=== PATIENT | male | born 1950 | race Caucasian/White ===

== ENCOUNTER 2024-04-27 13:28 | Emergency (ER) | payer MEDICARE, OTHER, SELFPAY ==
[2024-04-27] VITALS (9 sets, daily range): BP systolic 94–133; BP diastolic 56–82; PULSE 62–180; RESP 10–16; TEMP -17.7–36.8; O2SAT 93–97; BMI 36.7
--- NOTE | 2024-04-27 | ECG_ITS ---
Test Reason : T[place]IC[place] Blood Pressure : / mmHG Vent. Rate : 123 BPM Atrial Rate : 000 BPM P-R Int : 000 ms QRS Dur : 100 ms QT Int : 330 ms P-R-T Axes : 000 -10 036 degrees QTc Int : 472 ms Atrial fibrillation with rapid ventricular response Inferior infarct , age undetermined Abnormal ECG When compared with ECG of 26-MAR-2020 18:12, Atrial fibrillation has replaced Sinus rhythm Vent. rate has increased BY 56 BPM Non-specific change in ST segment in Lateral leads Nonspecific T wave abnormality now evident in Lateral leads Referred By: Bro Gamble Electronically Signed By:BEVERLY CRUMP
--- NOTE | ~2024-04-27 | XR_ITS ---
EXAMINATION: XR CHEST CLINICAL INFORMATION: CHF COMPARISON: Chest xray on 03/26/20 TECHNIQUE: Frontal view of the chest was obtained. FINDINGS: No significant abnormality is noted involving the heart, lungs, mediastinum, bony thorax or soft tissues. XR/XR chest 1V IMPRESSION: Unremarkable examination. Electronically signed by: Zarina Edmonds MD 04/27/2024 03:23 PM EDT RP
--- NOTE | 2024-04-27 13:52 | ED_ITS ---
HPI - Dizziness General Chief Complaint: Dizziness Stated Complaint: DIZZY,RAPID AFIB PER EMS Time Seen by Provider: 04/27/24 13:31 Source: patient and family Mode of arrival: EMS Limitations: no limitations History of Present Illness ED Provider: Dr. Bro Gamble HPI Narrative: 73-year-old male with a history of hyperlipidemia, asthma, recent diagnosis of atrial fibrillation who presents emergency department for evaluation of lightheadedness and palpitations while taking a shower. The patient states that he was in a hot shower when he felt his heart was racing. The patient felt lightheaded and dizzy as if he was going to pass out. He states that recently he was diagnosed with atrial fibrillation and initially started on metoprolol. He was feeling short of breath on metoprolol in his doctor [place] that this beta cait was exacerbating his asthma therefore this medication was discontinued and he was started on started him on diltiazem 120 mg daily. Patient states he started this 2 days ago. When he got out of the shower and felt his heart was racing, he took metoprolol 25 mg x 2. he called for his and his then called 911. Paramedics state that the patient's heart rate was 150-180 beats per minute. They gave him a 500 cc bolus of normal saline and his heart rate came down to the 120-150 range. Patient states that he has had brief episodes of near-syncope over the last 2 days. He states he has not had any associated palpitations with these near syncopal episodes. Denied fever, chills, cough, chest pain, shortness of breath. He states that he always has some baseline dyspnea on exertion this is unchanged. He denied nausea vomiting or diarrhea. Patient is scheduled for cardioversion next week by his paper cone grader. Related Data Allergies Allergy/AdvReac Type Severity Reaction Status Date / Time No Known Allergies Allergy Unverified 04/27/24 13:36 [No Known Allergies*] Review of Systems 2 Review of Systems: Yes all other systems are reviewed and are negative [facility] Past Medical History [facility] Narrative: social history: He denies tobacco use. He denies alcohol and drug use. Social History Social History Smoked in Last 30 Days: No Use of substances other than those prescribed or required for medical reasons: No Advance Directives: No Advance Directives Information Provided: No Do you have a plan to hurt others: No Plan Physical Exam 2 Vital Signs: Vital Signs: Last Vital Signs Temp 0 F L 04/27/24 17:22 Pulse 90 04/27/24 17:22 Resp 16 04/27/24 17:22 BP 115/67 04/27/24 17:22 Pulse Ox 94 04/27/24 17:22 O2 Del Method Room Air 04/27/24 17:22 BMI result Body Mass Index 36.7 Exam: General: Awake, alert in no distress Head: Normocephalic, atraumatic EENT: PERRL, Lids normal, sclera normal, conjunctiva normal, nose normal , ears normal, throat without erythema or exudates Neck: Supple, no adenopathy Lung: breath sounds symmetric, no wheezing, rales or rhonchi Chest: symmetric movement, nontender Heart: Rapid irregularly irregular heart rate, normal S1, S2 no murmurs or rubs Abdomen: soft, non-tender, nondistended, normal bowel sounds Back: no vertebral tenderness, no CVAT Extremities: no deformities, moves all extremities symmetrically Neuro: Awake, alert, oriented, normal speech, cranial nerves intact, moves all extremities symmetrically Psych: Pleasant, cooperative Medications Administered Discontinued Medications Generic Name Dose Route Start Last Admin Trade Name Freq PRN Reason Stop Dose Admin Diltiazem HCl 20 mg 04/27/24 13:53 04/27/24 14:09 Diltiazem Hcl 50 Mg/10 Ml Vial IVPUSH 04/27/24 13:54 10 mg STAT STA Administration Medical Decision Making Medical Decision Making [facility] Narrative: 73-year-old male with a history of hyperlipidemia, asthma, atrial fibrillation on Xarelto who presents emergency department for evaluation of lightheadedness and palpitations while taking a shower. patient was recently diagnosed with atrial fibrillation initially was placed on metoprolol but this was discontinued for possible exacerbation of his asthma and he was started on diltiazem 120 mg daily 2 days prior. Patient states that he has had brief episodes of near- syncope since starting the diltiazem but has not had associated palpitations. Paramedics report that the patient's initial heart rate was 150-180 beats per minute. This improved after a 500 cc normal saline bolus he was heart rate decreased to the 120-150 range. Patient denied any associated chest pain or systemic symptoms. At the time of my evaluation the patient did have a rapid irregular heart rate 120-150 beats per minute. Exam was otherwise unremarkable. Differential diagnosis: Includes but is not limited to Myocardial infarction, myocardial ischemia, atrial fibrillation with rapid ventricular response, arrhythmia, anemia, electrolyte abnormalities Patient was initially treated with the following: diltiazem 10 mg IV Course: my interpretation of the patient's laboratory evaluation is as follows: CBC was normal. CMP was normal. High sensitive troponin I was below detectable limits. PT/INR were elevated 2.1 in 25.8, PTT is elevated 43.9-this is secondary to his Xarelto. The patient got significant improvement of his rate with IV diltiazem. Patient remained in atrial fibrillation. The patient's laboratory evaluation revealed no evidence for myocardial him injury. Patient was discharged home and advised to continue taking his diltiazem as prescribed by his paper cone grader. He was given printed and verbal instructions and discharged home. Admission/Observation Consideration of admission/observation: Escalation of care including admission/observation considered Lab Data MDM Lab Attestation statement: I reviewed the patient's lab results. 04/27/24 13:58 04/27/24 13:58 Labs: Lab Results 04/27/24 04/27/24 Range/Units 13:57 13:58 WBC 7.2 (4.8-10.8) X10*3/uL RBC 4.84 (4.60-5.80) X10*6/uL Hgb 14.6 (14.0-18.0) g/dl Hct 44.3 (42.0-52.0) % MCV 91.5 (80.0-98.0) fL MCH 30.2 (27.0-33.0) pg MCHC 33.0 (31.0-36.0) g/dl RDW 13.2 (11.0-16.0) % Plt Count 207 (160-400) X10*3/uL MPV 8.9 L (9.4-12.4) fL Immature Gran % (Auto) 0.6 H (0.0-0.4) % Neut % (Auto) 64.1 (45-73) % Lymph % (Auto) 25.4 (20-40) % [place] % (Auto) 7.8 (2-11) % Eos % (Auto) 1.8 (0-4) % Baso % (Auto) 0.3 (0-2) % Lymph # (Auto) 1.8 (1.2-4.9) X10*3/uL [place] # (Auto) 0.6 (0.1-1.2) X10*3/uL Eos # (Auto) 0.1 (0.0-0.4) X10*3/uL Baso # (Auto) 0.0 (0.0-0.2) X10*3/uL Abs Immat Gran (auto) 0.04 H (0.00-0.03) X10*3/uL Absolute Neuts (auto) 4.6 (2.0-8.3) x10*3/uL Absolute Nucleated RBC 0.000 (0.0-0.012) X10*3/uL Nucleated RBC % (auto) 0.0 (0.0-0.2) /100WBC PT 25.8 H (11.1-13.3) SEC INR 2.1 H (0.9-1.1) APTT 43.9 H (26.0-36.8) SEC Sodium 143 (135-145) mmol/L Potassium 4.4 (3.3-5.1) mmol/L Chloride 109 H (96-108) mmol/L Carbon Dioxide 24 (22-29) mmol/L Anion Gap 14 (12-20) BUN 13 (9-16) mg/dL Creatinine 0.88 (0.5-1.4) mg/dL Estim Creat Clear Calc 113.2 Estimated GFR > 60 Random Glucose 102 (60-115) mg/dL Calcium 8.9 (8.4-10.2) mg/dL Total Bilirubin 0.5 (0.0-1.0) mg/dL AST 20 (5-37) U/L ALT 23 (0-40) U/L Alkaline Phosphatase 70 (39-117) U/L Troponin I High Sens < 2.7 (<3.5-35.0) ng/L B-Natriuretic Peptide 291 H (<100) pg/mL Total Protein 6.7 (6.5-8.0) g/dL Albumin 4.0 (3.5-5.0) g/dL Lipase 25 (8-78) U/L Hold Red Top See Note Independent Interpretation I performed an independent interpretation of an: EKG Interpretation: My interpretation the patient's 12 EKG done at 13:43 hours is as follows: Atrial fibrillation with a rapid ventricular response of 123 beats per minute, prolonged QRS 100 milliseconds, normal QTC of 472 milliseconds, Q-waves in 3 and AVF, no significant ST segment elevation or depression no significant T- wave abnormalities. My independent interpretation of the patient's one-view chest x-ray is as follows: No acute infiltrates Radiology Impression Discussion of test interpretation with radiology: I have reviewed the radiologist's reading. Radiologist Impression: XR chest 1V IMPRESSION: Unremarkable examination. Electronically signed by: Zarina Edmonds MD 04/27/2024 03:23 PM EDT RP Dictated By: Zarina Edmonds MD Independent Historian Clinical information obtained from an independent historian. History obtained from or confirmed by: Spouse Chronic Conditions Patient?s care impacted by: Other ( hyperlipidemia) Critical Care Time Critical Care Time Critical Care Time: Yes Total Critical Care Time: 40 Attestation: Critical Care: The patient was critically ill with a high probability of imminent or life threatening deterioration. I spent greater than 30 minutes of discontinuous time evaluating the patient,delivering critical care at the bedside, discussing and evaluating pertinent data with consultants. Critical care time does not include time spent performing separately billable procedures or teaching. Total time spent performing critical care was 40 minutes. Discharge Plan Discharge Clinical Impression: Atrial fibrillation with rapid ventricular response Patient Disposition: Home, Self-Care Instructions: A-fib (Atrial Fibrillation) (ED) Additional Instructions: At this time, I believe that your lightheadedness was caused by your atrial fibrillation and your very rapid heart rate. The paramedics state that your heart rate was going between 150 beats per minute to 180 beats per minute. They gave you IV fluids and this decrease your heart rate to 120-150 beats per minute. Here in the emergency department we treated you with diltiazem 10 mg IV and this improved your heart rate. You had a complete blood count, comprehensive metabolic panel and high sensitive troponin I. All of these tests were unremarkable and normal. I want you to continue taking your diltiazem as prescribed by your provider. Do not take metoprolol since I believe this medication made you short of breath previously. When you see your paper cone grader you should ask them about metoprolol and if they do not want you to take this medication you should throw the medication away so you do not accidentally take it in the future. Continue taking your Xarelto and your other medications as prescribed. Follow-up with your doctor in 2 days. Please return to the emergency department if your symptoms get worse or if you develop any symptoms that are concerning to you. Interventions: ED Discharge Assessment Last Done: 04/27/24 17:22 Discharge Date/Time: 04/27/24 17:24 Print Language: Pakistani
[2024-04-27 14:03] LABS: MANUAL DIFF FLAG NO
[2024-04-27 14:05] LABS: Basophils Percent Auto 0.3 % (0-2); Eosinophils Absolute Auto 0.1 X10*3/uL (0.0-0.4); Eosinophils Percent Auto 1.8 % (0-4); Hematocrit 44.3 % (42.0-52.0); Hemoglobin 14.6 g/dl (14.0-18.0); Imm Gran Abs Auto 0.04 X10*3/uL (0.00-0.03); Imm Gran Pct Auto 0.6 % (0.0-0.4); Lymphocytes Absolute Auto 1.8 X10*3/uL (1.2-4.9); Lymphocytes Percent Auto 25.4 % (20-40); Mean Corpuscular Hemoglobin 30.2 pg (27.0-33.0); Mean Corpuscular Volume 91.5 fL (80.0-98.0); Mean Platelet Volume 8.9 fL (9.4-12.4); Monocytes Absolute Auto 0.6 X10*3/uL (0.1-1.2); Monocytes Percent Auto 7.8 % (2-11); Neutrophils Absolute Auto 4.6 x10*3/uL (2.0-8.3); Neutrophils Percent Auto 64.1 % (45-73); Platelet Count 207 X10*3/uL (160-400); Red Blood Count 4.84 X10*6/uL (4.60-5.80); Red Cell Distribution Width 13.2 % (11.0-16.0); White Blood Count 7.2 X10*3/uL (4.8-10.8)
[2024-04-27] MEDS: dilTIAZem HCL 50 MG/10 ML VIAL 20 MG IVPUSH (14:09)
[2024-04-27 14:12] LABS: INTERNATIONAL NORM RATIO 2.1 (0.9-1.1); Prothrombin Time 25.8 SEC (11.1-13.3)
[2024-04-27 14:14] LABS: Partial Thromboplastin Time 43.9 SEC (26.0-36.8)
--- NOTE | 2024-04-27 14:22 | PC.NURSE ---
Pt comes to ED today via EMS from home with c/o dizziness and weakness while in the shower. Per EMS, while in route Pt was noted to have HR ranging from 120-180. Pt with Hx AFib and a recent change in BP medications by PCP. Upon arrival Pt noted to have HR ranging from 130-150, BP stable, afebrile, and A&Ox3. Skin is warm and dry. Pt denies pain at this time. Breaths are slow, even and unlabored. Pt reports some SOB but states this is a baseline. Tremor noted however Pt reports this is a baseline. Provider at bedside and ordered Cardizem IV push with good result. Pt tolerated well and HR now ranging from 90-110. Pt on continuous cardiac monitoring, blood labs completed and awaiting results.
[2024-04-27 14:27] LABS: Alanine Aminotransferase 23 U/L (0-40); Alkaline Phosphatase 70 U/L (39-117); Anion Gap 14 (12-20); Aspartate Amino Transferase 20 U/L (5-37); Bilirubin Total 0.5 mg/dL (0.0-1.0); Blood Urea Nitrogen 13 mg/dL (9-16); Calcium 8.9 mg/dL (8.4-10.2); Carbon Dioxide 24 mmol/L (22-29); Chloride 109 mmol/L (96-108); Creatinine Clr Calc Pharmacy 113.2; Estimated Glomerular Filt Rate > 60; Glucose Random 102 mg/dL (60-115); Lipase 25 U/L (8-78); Potassium 4.4 mmol/L (3.3-5.1); Sodium 143 mmol/L (135-145); Total Protein 6.7 g/dL (6.5-8.0)
[2024-04-27 14:30] LABS: B Type Natriuretic Peptide 291 pg/mL (<100)
[2024-04-27 14:37] LABS: Troponin-I High Sensitivity < 2.7 ng/L (<3.5-35.0)
== END 2024-04-27 17:24 | disposition home or self-care (01) ==
PROVIDERS: Emergency Provider Emergency Medicine Emergency Medical Services
DX: I48.20 Chronic atrial fibrillation, unspecified (principal); R42 Dizziness and giddiness; R00.2 Palpitations; R06.02 Shortness of breath; Z79.01 Long term (current) use of anticoagulants; Z79.899 Other long term (current) drug therapy
CPT/HCPCS: 36415; 71045; 80053; 83690; 83880; 84484; 85025; 85610; 85730; 93005; 96374; 99285

== ENCOUNTER 2024-08-18 11:09 | Observation (INO) | payer MEDICARE, OTHER, SELFPAY ==
[2024-08-18] VITALS (9 sets, daily range): BP systolic 96–140; BP diastolic 63–82; PULSE 85–122; RESP 14–20; TEMP 36.4–36.9; O2SAT 89–96; BMI 34.8
--- NOTE | ~2024-08-18 | XR_ITS ---
EXAMINATION: XR CHEST CLINICAL INFORMATION: dizziness COMPARISON: None available. TECHNIQUE: Frontal view of the chest was obtained. FINDINGS: The lungs are well-expanded and clear acute pneumonic process. There is platelike atelectasis in the lingula. Heart size and pulmonary vascularity is normal. No gross bony abnormality seen.. XR/XR chest 1V IMPRESSION: Unremarkable chest examination. Electronically signed by: Rigo Dela Cruz MD 08/18/2024 12:30 PM EST
--- NOTE | 2024-08-18 11:15 | ED_ITS ---
HPI - General Adult General Chief complaint: Dizziness Stated complaint: DIZZY,SOB RAPID AFIB PER EMS Time Seen by Provider: 08/18/24 11:15 Source: patient, family (patient's ) and EMS Mode of arrival: EMS Limitations: no limitations History of Present Illness ED Provider: Kennedi Burton PA-C HPI narrative: Patient is a 73 year old assigned male at with a history of atrial fib on 120 mg of ER Diltiazem and Xarelto with an ablation scheduled for September, presenting to the emergency department today with lightheadedness and shortness of breath. Patient states that he woke up today feeling lightheaded and some what short of breath. Patient denies any dizziness, abdominal pain, nausea, vomiting, fever, chills, blurry vision, double vision, loss of vision, chest pain, back pain, night sweats, pain with urination, increased urinary frequency, increased urinary urgency, blood in his urine or stool, syncope or a near syncopal episode, recent trauma or falls, bowel incontinence, bladder incontinence, or any other complaints at this time. Relieving factors: none Exacerbating factors: none Associated symptoms: shortness of breath Treatments prior to arrival: none Related Data Home Medications ?Medication ?Instructions ?Recorded ?Confirmed atorvastatin 80 mg tablet 80 mg PO DAILY 08/18/24 diltiazem HCl 120 mg 120 mg PO DAILY 08/18/24 capsule,extended release 24 hr docusate sodium 100 mg capsule 100 mg PO DAILY 08/18/24 gabapentin 300 mg capsule 300 mg PO TID 08/18/24 gabapentin 300 mg capsule 900 mg PO BEDTIME 08/18/24 omeprazole 20 mg capsule,delayed 20 mg PO DAILY@0630 08/18/24 release oxycodone 10 mg tablet 10 mg PO 08/18/24 rivaroxaban 20 mg tablet (Xarelto) 20 mg PO DAILY@1700 08/18/24 tamsulosin 0.4 mg capsule 0.4 mg PO BEDTIME 08/18/24 Allergies Allergy/AdvReac Type Severity Reaction Status Date / Time No Known Allergies Allergy Verified 08/18/24 11:18 [No Known Allergies*] Review of Systems 2 Constitutional: Constitutional: Reports no additional constitutional complaints, Denies chills, Denies fever(s) and Denies night sweats Eyes: Eyes: Reports no additional eye complaints, Denies blurry vision, Denies change in vision, Denies diplopia, Denies eye discharge, Denies loss of vision and Denies eye pain ENT: Denies dizziness Cardiovascular: Cardiovascular: Reports no additional cardiovascular complaints, Denies chest pain, Denies lightheadedness, Denies Loss of Consciousness and Reports dyspnea Respiratory: Respiratory: Reports dyspnea Gastrointestinal: Gastrointestinal: Reports no additional gastrointestinal complaints, Denies abdominal pain, Denies melena, Denies hematochezia, Denies change in bowel habits and Denies change in stool character Genitourinary: Genitourinary: Reports no additional male genitourinary complaints, Denies hematuria, Denies oliguria, Denies difficulty urinating, Denies dysuria, Denies urinary frequency, Denies urinary hesitancy, Denies urinary incontinence and Denies urinary urgency Musculoskeletal: Musculoskeletal: Reports no additional musculoskeletal complaints, Denies numbness and Denies tingling Neurologic: Denies dizziness, Denies loss of vision, Denies numbness and Denies tingling Comments: lightheadedness Psychiatric: Psychiatric: Reports no additional psychiatric complaints Endocrine: Endocrine: Reports no additional endocrine complaints Hematologic/Lymphatic: Hematologic/Lymphatic: Reports no additional hematologic/lymphatic complaints Allergic/Immunologic: Allergic/Immunologic: Reports no additional allergic/immunologic complaints PMFSH Past Medical History Attestation statement: The following information was validated with the patient. (all information validated with the patient's ) Source: old records reviewed, obtained from family (patient's provided additional history and confirmed the history provided by the patient) and nursing notes reviewed Social History Social History Smoked in Last 30 Days: No Use of substances other than those prescribed or required for medical reasons: No Advance Directives: No Advance Directives Information Provided: Yes Do you have a plan to hurt others: No Plan Physical Exam ED Vital Signs: Vital Signs - 24 hr 08/18/24 11:16 08/18/24 12:02 08/18/24 12:03 Temperature 98.5 F Pulse Rate 122 H 101 H 101 H Respiratory Rate 18 14 Blood Pressure 121/82 103/69 103/69 Pulse Oximetry 96 89 L Oxygen Delivery Method Nasal Cannula Room Air Oxygen Flow Rate 08/18/24 12:42 08/18/24 13:10 12/30/24 14:43 Temperature Pulse Rate 93 98 87 Respiratory Rate 20 14 Blood Pressure 96/69 102/71 113/79 Pulse Oximetry 96 95 Oxygen Delivery Method Nasal Cannula Nasal Cannula Oxygen Flow Rate 2 2 08/18/24 14:44 08/18/24 14:45 Temperature Pulse Rate 96 89 Respiratory Rate Blood Pressure 114/70 120/63 Pulse Oximetry Oxygen Delivery Method Oxygen Flow Rate BMI result Body Mass Index 34.8 Const General: cooperative, no acute distress, alert and awake Nutritional Appearance: well nourished Orientation/consciousness: patient oriented x3 Limitations: no limitations HENMT Head: Yes normal to inspection and Yes atraumatic Ears: hearing grossly normal bilaterally and external ears normal General nose exam: Normal external nose present, no nasal discharge noted and no epistaxis Face and sinus: Yes normal facial exam, No abrasion and No laceration Mouth: Normal oral and palatal mucosa present, no drooling and no muffled voice Eyes General: appearance normal, both eyes and all related structures Periorbital: periorbital findings normal Eyelids: Yes eyelids normal Conjunctivae: conjunctivae normal Pupils: Equal, round and reactive pupils present EOM: EOMs intact bilaterally Neck Neck: Yes normal visual inspection, Yes full ROM and Yes no lymphadenopathy Chest Chest palpation & inspection: normal inspection of the chest Resp Effort & Inspection: normal respiratory effort and able to speak in complete sentences Cardio Rate: tachycardic Rhythm: abnormal rhythm irregularly irregular GI Inspection: Yes normal to inspection Neuro General: patient oriented x3 and moves all extremities Cranial nerves: Yes Equal, round and reactive pupils present Cognition (Neuro): normal cognition Extrem General: Yes normal to inspection, Yes full ROM and Yes capillary refill normal Psych Appearance: grossly normal Mental Status: mental status grossly normal Affect: normal affect Attitude: cooperative Thought process: Normal thought process present Thought content: Normal thought content present Insight: Good insight present (Psych) Medications Administered Discontinued Medications Generic Name Dose Route Start Last Admin Trade Name Freq PRN Reason Stop Dose Admin Diltiazem HCl 5 mg 08/18/24 11:50 08/18/24 12:03 Diltiazem Hcl 50 Mg/10 Ml Vial IVPUSH 08/18/24 11:51 5 mg STAT STA Administration Sodium Chloride 1,000 mls @ 999 mls/hr 08/18/24 12:45 08/18/24 14:06 Ns IV 08/18/24 13:45 Infused .Q1H1M RHONDA Infusion Medical Decision Making Medical Decision Making [facility] Narrative: Patient is a 73 year old assigned male at with a history of atrial fib on 120 mg of ER Diltiazem and Xarelto with an ablation scheduled for September, presenting to the emergency department today with lightheadedness and shortness of breath. Patient's physical exam showed an individual in atrial fibrillation with RVR. Patient's blood work was unremarkable. Patient's urine showed no acute process. Patient's initial EKG showed atrial fibrillation with RVR. Patient's chest x-ray showed no acute process. Patient was given 5mg of IV diltiazem while his heart rate was in the mid 120s to low 130s, which appropriately slowed his rate however, his systolic blood pressure dropped some. At that time the patient was given IV fluids. I called and spoke to the patient's educational technician, Dr. Jones, who recommended continuing to hydrate the patient and performing orthostatic vital signs. After patient finished his fluids, he was stood up for orthostatic vital signs and had a near syncopal episode and a rhythm strip was captured showing multiple 1-2 second pauses with PVCs and then the patient going back into atrial fib. Repeat EKG at that time showed atrial fib at a normal rate. I reached back out to Dr. Jones who recommended medical admission here at [facility] with our educational technician team consulting. I consulted with Dr. Hayes who agreed with medical admission. I spoke to the hospitalist team who agreed to admission. I explained my physical exam findings as well as all test results to the patient and the patient's . I answered all questions asked by the patient and the patient's . Patient and the patient's verbalized agreement and understanding with this treatment plan and admission. Differential Diagnosis Differential Diagnoses: The differential diagnosis associated with the presentation includes Sick sinus syndrome Atrial fibrillation with rapid ventricular response Near syncope Orthostatic hypotension Admission/Observation Consideration of admission/observation: Escalation of care including admission/observation considered Patient admitted as noted in the MDM Rationale portion of this note. Consult Healthcare Provider Management of the patient was discussed with: Hospitalist (agreed to admission as noted in the MDM Rationale portion of this note.) and Hand Rounder (spoke to both [facility] cardiology and Dr. Jones as noted in the MDM Rationale portion of this note.) Lab Data [facility] Lab Attestation statement: I reviewed the patient's lab results. My interpretation of these results are in the MDM Rationale portion of this note. 08/18/24 11:34 08/18/24 11:34 Labs: Lab Results 08/18/24 08/18/24 08/18/24 Range/Units 11:34 12:42 14:34 WBC 6.2 (4.8-10.8) X10*3/uL RBC 4.22 L (4.60-5.80) X10*6/uL Hgb 12.9 L (14.0-18.0) g/dl Hct 39.8 L (42.0-52.0) % MCV 94.3 (80.0-98.0) fL MCH 30.6 (27.0-33.0) pg MCHC 32.4 (31.0-36.0) g/dl RDW 12.9 (11.0-16.0) % Plt Count 179 (160-400) X10*3/uL MPV 8.4 L (9.4-12.4) fL Immature Gran % (Auto) 0.5 H (0.0-0.4) % Neut % (Auto) 66.5 (45-73) % Lymph % (Auto) 21.6 (20-40) % [place] % (Auto) 8.1 (2-11) % Eos % (Auto) 3.1 (0-4) % Baso % (Auto) 0.2 (0-2) % Lymph # (Auto) 1.3 (1.2-4.9) X10*3/uL [place] # (Auto) 0.5 (0.1-1.2) X10*3/uL Eos # (Auto) 0.2 (0.0-0.4) X10*3/uL Baso # (Auto) 0.0 (0.0-0.2) X10*3/uL Abs Immat Gran (auto) 0.03 (0.00-0.03) X10*3/uL Absolute Neuts (auto) 4.1 (2.0-8.3) x10*3/uL Absolute Nucleated RBC 0.000 (0.0-0.012) X10*3/uL Nucleated RBC % (auto) 0.0 (0.0-0.2) /100WBC PT 18.1 H (10.9-12.4) SEC INR 1.6 H (0.9-1.1) APTT 39.4 H (26.0-36.8) SEC VBG pH 7.53 H (7.32-7.43) VBG pCO2 29 mmHg VBG pO2 235 mmHg VBG HCO3 25 (22-26) mmol/L VBG O2 Saturation 100.0 % VBG Base Excess 3.6 mmol/L Sodium 142 (135-145) mmol/L Potassium 4.6 (3.3-5.1) mmol/L Chloride 108 (96-108) mmol/L Carbon Dioxide 30 H (22-29) mmol/L Anion Gap 9 L (12-20) BUN 16 (9-16) mg/dL Creatinine 0.89 (0.5-1.4) mg/dL Estim Creat Clear Calc 108.9 Estimated GFR > 60 Random Glucose 112 (60-115) mg/dL Calcium 8.4 (8.4-10.2) mg/dL Magnesium 2.2 (1.6-2.6) mg/dL Total Bilirubin 0.4 (0.0-1.0) mg/dL AST 59 H (5-37) U/L ALT 90 H (0-40) U/L Alkaline Phosphatase 65 (39-117) U/L Troponin I High Sens < 2.7 (<3.5-35.0) ng/L Total Protein 6.2 L (6.5-8.0) g/dL Albumin 3.7 (3.5-5.0) g/dL Urine Color Dark Yellow Urine Appearance Clear Urine pH 5.5 (5.0-9.0) Ur Specific [place] 1.020 (1.005-1.025) Urine Protein Negative (Neg-Trace) mg/dL Urine Glucose (UA) Negative (Negative) mg/dL Urine Ketones Negative (Negative) mg/dL Urine Blood Negative (Negative) Urine Nitrite Negative (Negative) Ur Leukocyte Esterase Negative (Negative) Influenza Type A (PCR) NEGATIVE (Negative) Influenza Type B (PCR) NEGATIVE (Negative) RSV RNA Qual (PCR) NEGATIVE (Negative) SARS-CoV-2 RNA (RT-PCR) NEGATIVE (Negative) Independent Interpretation I performed an independent interpretation of an: EKG and Plain X-Ray Interpretation: My interpretation is in agreement with the radiologist's impression of this imaging study. L EXAMINATION: XR CHEST CLINICAL INFORMATION: dizziness COMPARISON: None available. TECHNIQUE: Frontal view of the chest was obtained. FINDINGS: The lungs are well-expanded and clear acute pneumonic process. There is platelike atelectasis in the lingula. Heart size and pulmonary vascularity is normal. No gross bony abnormality seen.. XR/XR chest 1V IMPRESSION: Unremarkable chest examination. Electronically signed by: Rigo Dela Cruz MD 08/18/2024 12:30 PM EST Dictated By: Rigo Dela Cruz MD Signed By: Electronically signed by Rigo Dela Cruz MD 08/18/24 1230 Vent. Rate: 102 BPM Atrial Rate: 000 BPM P-R Int: 000 ms QRS Dur: 100 ms QT Int: 300 ms P-R-T Axes: 000 000 006 degrees QTc Int: 391 ms Atrial fibrillation with rapid ventricular response Abnormal ECG When compared with ECG of 27-APR-2024 13:43, No significant change was found Referred By: Kennedi Butron Electronically Signed By:BIGG HAYES MD Dictated By: Bigg Hayes MD Signed By: Electronically signed by Bigg Hayes MD 08/18/24 1547 Vent. Rate: 085 BPM Atrial Rate: 000 BPM P-R Int: 000 ms QRS Dur: 100 ms QT Int: 392 ms P-R-T Axes: 000 -02 -07 degrees QTc Int: 466 ms Atrial fibrillation Cannot rule out Anterior infarct , age undetermined Abnormal ECG When compared with ECG of 18-AUG-2024 11:21, QT has lengthened DD/ 1450 Independent Historian Clinical information obtained from an independent historian. History obtained from or confirmed by: Spouse (Patient's provided additional history and confirmed the history provided by the patient.) and EMS (EMS provided additional history and confirmed the history provided by the patient.) Critical Care Time Critical Care Time Critical Care Time: Yes Total Critical Care Time: 54 Attestation: I spent 54 minutes of Critical Care Time with this patient. This does not include time spent on separately reported billable procedures. Discharge Plan Discharge Clinical Impression: Atrial fibrillation with RVR, Near syncope Patient Disposition: Admitted As Inpatient Print Language: Hungarian
--- NOTE | 2024-08-18 11:19 | ECG_ITS ---
Test Reason : A FIB Blood Pressure : / mmHG Vent. Rate : 102 BPM Atrial Rate : 000 BPM P-R Int : 000 ms QRS Dur : 100 ms QT Int : 300 ms P-R-T Axes : 000 000 006 degrees QTc Int : 391 ms Atrial fibrillation with rapid ventricular response Abnormal ECG When compared with ECG of 27-APR-2024 13:43, No significant change was found Referred By: Kennedi Burton Electronically Signed By:ASHWIN HAYES MD
[2024-08-18 11:39] LABS: MANUAL DIFF FLAG NO
[2024-08-18 11:41] LABS: Basophils Percent Auto 0.2 % (0-2); Eosinophils Absolute Auto 0.2 X10*3/uL (0.0-0.4); Eosinophils Percent Auto 3.1 % (0-4); Hematocrit 39.8 % (42.0-52.0); Hemoglobin 12.9 g/dl (14.0-18.0); Imm Gran Abs Auto 0.03 X10*3/uL (0.00-0.03); Imm Gran Pct Auto 0.5 % (0.0-0.4); Lymphocytes Absolute Auto 1.3 X10*3/uL (1.2-4.9); Lymphocytes Percent Auto 21.6 % (20-40); Mean Corpuscular HGB Conc 32.4 g/dl (31.0-36.0); Mean Corpuscular Hemoglobin 30.6 pg (27.0-33.0); Mean Corpuscular Volume 94.3 fL (80.0-98.0); Mean Platelet Volume 8.4 fL (9.4-12.4); Monocytes Absolute Auto 0.5 X10*3/uL (0.1-1.2); Monocytes Percent Auto 8.1 % (2-11); Neutrophils Absolute Auto 4.1 x10*3/uL (2.0-8.3); Neutrophils Percent Auto 66.5 % (45-73); Platelet Count 179 X10*3/uL (160-400); Red Blood Count 4.22 X10*6/uL (4.60-5.80); Red Cell Distribution Width 12.9 % (11.0-16.0); White Blood Count 6.2 X10*3/uL (4.8-10.8)
[2024-08-18 11:48] LABS: INTERNATIONAL NORM RATIO 1.6 (0.9-1.1); Prothrombin Time 18.1 SEC (10.9-12.4)
[2024-08-18 11:50] LABS: Partial Thromboplastin Time 39.4 SEC (26.0-36.8)
[2024-08-18 11:56] LABS: Alanine Aminotransferase 90 U/L (0-40); Albumin Level 3.7 g/dL (3.5-5.0); Alkaline Phosphatase 65 U/L (39-117); Anion Gap 9 (12-20); Aspartate Amino Transferase 59 U/L (5-37); Bilirubin Total 0.4 mg/dL (0.0-1.0); Blood Urea Nitrogen 16 mg/dL (9-16); Calcium 8.4 mg/dL (8.4-10.2); Carbon Dioxide 30 mmol/L (22-29); Chloride 108 mmol/L (96-108); Creatinine Clr Calc Pharmacy 108.9; Estimated Glomerular Filt Rate > 60; Glucose Random 112 mg/dL (60-115); Magnesium 2.2 mg/dL (1.6-2.6); Potassium 4.6 mmol/L (3.3-5.1); Sodium 142 mmol/L (135-145); Total Protein 6.2 g/dL (6.5-8.0)
[2024-08-18] MEDS: dilTIAZem HCL 50 MG/10 ML VIAL IVPUSH (12:03)
[2024-08-18 12:04] LABS: Troponin-I High Sensitivity < 2.7 ng/L (<3.5-35.0)
[2024-08-18 12:33] LABS: Influenza A PCR NEGATIVE (Negative); Influenza B PCR NEGATIVE (Negative); Resp Syncy Virus RNA Qual PCR NEGATIVE (Negative); SARS COV2 PCR INHOUSE NEGATIVE (Negative)
[2024-08-18 12:46] LABS: Venous Blood Gas Refer to POC result
[2024-08-18 12:47] LABS: VBG Base Excess 3.6 mmol/L; VBG HCO3 25 mmol/L (22-26); VBG pCO2 29 mmHg; VBG pH 7.53 (7.32-7.43); VBG pO2 235 mmHg
[2024-08-18] MEDS: 0.9 % Sodium Chloride 1,000 ML 999 ML IV ×2 (13:09→17:09)
[2024-08-18 14:42] LABS: Appearance Urine Clear; Color Urine Dark Yellow; Glucose Urine UA Negative (Negative); Leukocyte Esterase Urine Negative (Negative); Nitrite Urine Negative (Negative); PH 5.5 (5.0-9.0); Urine Blood Negative (Negative); Urine Ketones Negative (Negative); Urine Protein Negative (Neg-Trace)
--- NOTE | 2024-08-18 14:44 | ECG_ITS ---
Test Reason : REPEAT EKG/DIZZINESS Blood Pressure : / mmHG Vent. Rate : 085 BPM Atrial Rate : 000 BPM P-R Int : 000 ms QRS Dur : 100 ms QT Int : 392 ms P-R-T Axes : 000 -02 -07 degrees QTc Int : 466 ms Atrial fibrillation Cannot rule out Anterior infarct , age undetermined Abnormal ECG When compared with ECG of 18-AUG-2024 11:21, QT has lengthened Referred By: Kennedi Burton Electronically Signed By:ASHWIN HAYES MD
--- NOTE | 2024-08-18 16:22 | PM.IMHP ---
History of Present Illness Date of Service: 08/18/24 Chief Complaint: Atrial fibrillation with rapid ventricular response 73 year old male with a history of atrial fib on 120 mg of ER Diltiazem and Xarelto with an ablation scheduled for September, presenting to the emergency department today with lightheadedness and shortness of breath. Patient states that he woke up today feeling lightheaded and some what short of breath. Presented to ER with ventricular response rate in the 120s to 130s; given 2 L of normal saline and 5 mg of IV Cardizem with markedly improved rate control. He will be admitted overnight monitored and cardiology consult in a.m. Review of Systems Review of Systems: Denies chest pain Admits shortness of breath this a.m. none currently Denies nausea vomiting diarrhea Denies fever chills PMFSH Social History Smoked in Last 30 Days: No Use of substances other than those prescribed or required for medical reasons: No Advance Directives: No Advance Directives Information Provided: Yes Do you have a plan to hurt others: No Plan Meds Allergies Allergy/AdvReac Type Severity Reaction Status Date / Time No Known Allergies Allergy Verified 08/18/24 11:18 [No Known Allergies*] Active Medications: Current Medications Acetaminophen (Acetaminophen 325 Mg Tablet) 650 mg PO Q6H PRN PRN Reason: Pain, Mild 1-3,fever,headache Calcium Carbonate (Calcium Carbonate 750 Mg Tab.Chew) 750 mg PO Q4H PRN PRN Reason: Heartburn Magnesium Hydroxide (Milk Of Magnesia 30 Ml Oral.Susp) 30 ml PO DAILY PRN PRN Reason: Constipation Melatonin (Melatonin 3 Mg Tablet) 6 mg PO BEDTIME PRN PRN Reason: Insomnia Ondansetron HCl (Ondansetron Hcl 4 Mg/2 Ml Vial) 4 mg IVPUSH Q8H PRN PRN Reason: Nausea and Vomiting Sodium Chloride (0.9 % Sodium Chloride Flush 3 Ml Syringe) 3 ml IVFLUSH [facility] Medications ?Medication ?Instructions ?Recorded ?Confirmed ?Last Taken ?Type atorvastatin 80 mg tablet 80 mg PO DAILY 08/18/24 Unknown History diltiazem HCl 120 mg 120 mg PO DAILY 08/18/24 Unknown History capsule,extended release 24 hr docusate sodium 100 mg capsule 100 mg PO DAILY 08/18/24 Unknown History gabapentin 300 mg capsule 300 mg PO TID 08/18/24 Unknown History gabapentin 300 mg capsule 900 mg PO BEDTIME 08/18/24 Unknown History omeprazole 20 mg capsule,delayed 20 mg PO DAILY@0630 08/18/24 Unknown History release oxycodone 10 mg tablet 10 mg PO 08/18/24 Unknown History rivaroxaban 20 mg tablet (Xarelto) 20 mg PO DAILY@1700 08/18/24 Unknown History tamsulosin 0.4 mg capsule 0.4 mg PO BEDTIME 08/18/24 Unknown History Physical Exam Vital Signs and Narrative: Vital Signs: Last Vital Signs Temp 98.5 F 08/18/24 11:16 Pulse 89 08/18/24 14:45 Resp 14 08/18/24 13:10 BP 120/63 08/18/24 14:45 Pulse Ox 95 08/18/24 13:10 O2 Del Method Nasal Cannula 08/18/24 13:10 O2 Flow Rate 2 08/18/24 13:10 Oxygen Flow Rate 2 08/18/24 11:16 BMI result Body Mass Index 34.8 Const: Other: Awake alert oriented x3 in no acute distress Resp: Other: Clear to auscultation bilaterally no rales rhonchi or wheezes Cardio: Other: No S4; positive S1-S2; no S3 murmurs rubs or gallops. Irregularly irregular GI: Other: Soft nontender nondistended normoactive bowel sounds Extrem: Other: Cranial nerves 2-12 grossly intact as tested. Motor is 5/5 all extremities. Sensation is intact. Cognition appropriate Results Labs 08/18/24 11:34 08/18/24 11:34 Labs: Laboratory Results - last 24 hr 08/18/24 08/18/24 08/18/24 11:34 12:42 14:34 MCV 94.3 MCH 30.6 MCHC 32.4 RDW 12.9 Plt Count 179 MPV 8.4 L Immature Gran % (Auto) 0.5 H Neut % (Auto) 66.5 Lymph % (Auto) 21.6 [place] % (Auto) 8.1 Eos % (Auto) 3.1 Baso % (Auto) 0.2 Lymph # (Auto) 1.3 [place] # (Auto) 0.5 Eos # (Auto) 0.2 Baso # (Auto) 0.0 Abs Immat Gran (auto) 0.03 Absolute Neuts (auto) 4.1 Absolute Nucleated RBC 0.000 Nucleated RBC % (auto) 0.0 PT 18.1 H INR 1.6 H APTT 39.4 H VBG pH 7.53 H VBG pCO2 29 VBG pO2 235 VBG HCO3 25 VBG O2 Saturation 100.0 VBG Base Excess 3.6 Anion Gap 9 L Estim Creat Clear Calc 108.9 Estimated GFR > 60 Random Glucose 112 Calcium 8.4 Magnesium 2.2 Total Bilirubin 0.4 AST 59 H ALT 90 H Alkaline Phosphatase 65 Troponin I High Sens < 2.7 Total Protein 6.2 L Albumin 3.7 Urine Color Dark Yellow Urine Appearance Clear Urine pH 5.5 Ur Specific [place] 1.020 Urine Protein Negative Urine Glucose (UA) Negative Urine Ketones Negative Urine Blood Negative Urine Nitrite Negative Ur Leukocyte Esterase Negative Influenza Type A (PCR) NEGATIVE Influenza Type B (PCR) NEGATIVE RSV RNA Qual (PCR) NEGATIVE SARS-CoV-2 RNA (RT-PCR) NEGATIVE Imaging Radiologist's Impressions: Impressions Chest X-Ray 08/18/24 11:39 IMPRESSION: Unremarkable chest examination. Electronically signed by: Rigo Dela Cruz MD 08/18/2024 12:30 PM [facility] [place] [place] Assessment and Plan (1) Atrial fibrillation with RVR: Status: Acute (2) Hypertension: Qualifiers: Hypertension type: primary hypertension Qualified Code(s): I10 - Essential (primary) hypertension Status: Acute (3) GERD (gastroesophageal reflux disease): Qualifiers: Esophagitis presence: esophagitis presence not specified Qualified Code(s): K21.9 - Gastro-esophageal reflux disease without esophagitis Status: Acute Plan 73-year-old male with known history of AFib on Xarelto presents with poorly controlled ventricular response in the 120s to 130s. Received 2 L normal saline and 5 mg of IV Cardizem with control of rate. He will be admitted overnight on telemetry for cardiology consult in a.m. 1. AFib with rapid ventricular response -acceptable control after volume and 1 dose of IV Cardizem -monitor overnight on telemetry -continue outpatient therapies -cardiology consult in a.m. 2. Hypertension -acceptable control on current therapies -adjust as indicated 3. GERD -continue PPI Full code Xarelto Patient will require overnight monitoring to document stability of rhythm and for specialty consultation in a.m. Quality Stroke Does the patient have a stroke diagnosis?: No VTE Prior VTE?: No VTE Risk Level:: Medical - moderate - high VTE Device Contraindication: Treatment Not Indicated VTE Drug Contraindication: N/A - Med Ordered
--- NOTE | 2024-08-18 16:34 | PHA.MEDREC ---
Addendum entered by Rina Mayberry [facility] 08/18/24 16:41: reviewed Original Note: Pharmacy Consult ? Medication Reconciliation Pharmacy has completed the medication reconciliation. Spoke to patient to confirm med list. Patient states he takes Gabapentin 900 mg at bedtime. patient last took his medications today in the morning.
[2024-08-18] MEDS: Tamsulosin HCL 0.4 MG CAPSULE PO (22:22)
[2024-08-18] MEDS: Gabapentin 300 MG CAPSULE 900 MG PO (22:22)
[2024-08-18] MEDS: oxyCODONE HCl Immed Release 5 MG TABLET 10 MG PO (22:22)
[2024-08-19] VITALS: BP 114/75; PULSE 60; RESP 16; TEMP 37; O2SAT 97
[2024-08-19] MEDS: 0.9 % Sodium Chloride Flush 3 ML SYRINGE IVFLUSH ×2 (00:35→08:29)
[2024-08-19 04:28] VITALS: BP 122/62; PULSE 61; RESP 20; TEMP 36.8; O2SAT 96
[2024-08-19 05:12] VITALS: BP 141/77; PULSE 79; RESP 17; TEMP 36.6; O2SAT 97
[2024-08-19 05:24] LABS: Hematocrit 37.2 % (42.0-52.0); Hemoglobin 12.4 g/dl (14.0-18.0); Mean Corpuscular HGB Conc 33.3 g/dl (31.0-36.0); Mean Corpuscular Hemoglobin 30.9 pg (27.0-33.0); Mean Corpuscular Volume 92.8 fL (80.0-98.0); Mean Platelet Volume 8.8 fL (9.4-12.4); Platelet Count 171 X10*3/uL (160-400); Red Blood Count 4.01 X10*6/uL (4.60-5.80); White Blood Count 6.5 X10*3/uL (4.8-10.8)
[2024-08-19 05:46] LABS: Alanine Aminotransferase 100 U/L (0-40); Albumin Level 3.4 g/dL (3.5-5.0); Alkaline Phosphatase 57 U/L (39-117); Anion Gap 11 (12-20); Aspartate Amino Transferase 68 U/L (5-37); Bilirubin Total 0.5 mg/dL (0.0-1.0); Blood Urea Nitrogen 16 mg/dL (9-16); Calcium 8.1 mg/dL (8.4-10.2); Carbon Dioxide 26 mmol/L (22-29); Chloride 110 mmol/L (96-108); Creatinine Clr Calc Pharmacy 110.1; Estimated Glomerular Filt Rate > 60; Glucose Random 95 mg/dL (60-115); Potassium 5.1 mmol/L (3.3-5.1); Sodium 142 mmol/L (135-145); Total Protein 5.9 g/dL (6.5-8.0)
[2024-08-19 08:05] VITALS: BP 133/87; PULSE 80; RESP 20; O2SAT 97
--- NOTE | 2024-08-19 09:21 | PC.NURSE ---
Cardiology to bedside present
--- NOTE | 2024-08-19 09:47 | MHC.CM.PN ---
Parul 08/19/24, Pt lives with his , she is HCP, copy requested. Pt. is independent, no home care services or DME. His will transport home at DC. DCP: home, self care. CM to follow for DC needs.
--- NOTE | 2024-08-19 10:13 | PM.CNCAR ---
History of Present Illness History of Present Illness Date of Service: 08/19/24 Requesting physician: Alonso Solo Consult reason: atrial fibrillation and other (Near-syncope) Chief complaint: DIZZY,SOB RAPID AFIB PER EMS Narrative: I was consulted to see Flaco in cardiology consultation today for symptoms of lightheadedness and atrial fibrillation with rapid ventricular response. Patient 73-year-old male with prior history of hypertension, recently diagnose atrial fibrillation in the last couple years status post cardioversion April and maintain rhythm for a couple of months and felt better. Had follow-up appointment recently with his structural engineering project manager Dr. Jones, and was noted to be in recurrent atrial fibrillation and plan was made for ablation which is scheduled for in September. Patient said he does not drink enough fluid as he has to go to bathroom quite a bit at nighttime. He has been taking his medication Cardizem 120 mg daily along with Xarelto 20 mg daily on a regular basis. Patient also high-intensity statin therapy. Has no history of known coronary artery disease with LV ejection fraction of low normal by last echocardiogram done at his structural engineering project manager's office from the notes. Patient was no history of heart failure although with atrial fibrillation has symptoms of shortness of breath and lightheadedness. He came to the hospital with again symptoms of lightheadedness and shortness of breath. Was noted to be in atrial fibrillation rapid ventricular response. He was then given IV fluid because of his symptoms 2 L along with IV Cardizem bolus at 5 mg with good rate control. However subsequently after getting out of bed he got lightheaded and his heart rate dropped and he was admitted for observation. Overnight his heart rate has remained controlled with heart rate in the 80s to 90s. He was blood pressures remained stable. He has not had any overnight symptoms of lightheadedness. No heart failure symptoms at current time. His troponins are negative. His BNP is listed at 291 could be related to persistent atrial fibrillation. Review of Systems Constitutional: Constitutional: Reports no additional constitutional complaints Cardiovascular: Cardiovascular: Denies chest pain, Reports rapid heart rate, Reports lightheadedness, Denies Loss of Consciousness, Denies palpitations, Reports dyspnea on exertion and Denies orthopnea Respiratory: Respiratory: Reports no additional respiratory complaints and Reports dyspnea on exertion Gastrointestinal: Gastrointestinal: Reports no additional gastrointestinal complaints Musculoskeletal: Musculoskeletal: Reports no additional musculoskeletal complaints Integumentary/Breasts: Skin/Breast: Reports system reviewed and no additional complaints, except as docu Neurologic: Reports system reviewed and no additional complaints, except as documented Endocrine: Endocrine: Reports no additional endocrine complaints and Denies palpitations PMFSH Social History Social History Patient Tobacco Use Status: Never used Tobacco Smoked in Last 30 Days: No Use of substances other than those prescribed or required for medical reasons: No Advance Directives: No Advance Directives Information Provided: Yes Do you have a plan to hurt others: No Plan Nutrition Risks: No Nutritional Risk service: No Meds Allergies Allergy/AdvReac Type Severity Reaction Status Date / Time No Known Allergies Allergy Verified 08/18/24 11:18 [No Known Allergies*] Active Medications: Current Medications Acetaminophen (Acetaminophen 325 Mg Tablet) 650 mg PO Q6H PRN PRN Reason: Pain, Mild 1-3,fever,headache Calcium Carbonate (Calcium Carbonate 750 Mg Tab.Chew) 750 mg PO Q4H PRN PRN Reason: Heartburn Magnesium Hydroxide (Milk Of Magnesia 30 Ml Oral.Susp) 30 ml PO DAILY PRN PRN Reason: Constipation Melatonin (Melatonin 3 Mg Tablet) 6 mg PO BEDTIME PRN PRN Reason: Insomnia Ondansetron HCl (Ondansetron Hcl 4 Mg/2 Ml Vial) 4 mg IVPUSH Q8H PRN PRN Reason: Nausea and Vomiting Sodium Chloride (0.9 % Sodium Chloride Flush 3 Ml Syringe) [facility] Admin: 08/19/24 08:29 Dose: 3 ml Home Medications ?Medication ?Instructions ?Recorded ?Confirmed ?Last Taken ?Type atorvastatin 80 mg tablet 80 mg PO DAILY 08/18/24 08/18/24 08/18/24 09:00 History diltiazem HCl 120 mg 120 mg PO DAILY 08/18/24 08/18/24 08/18/24 09:00 History capsule,extended release 24 hr docusate sodium 100 mg capsule 100 mg PO DAILY 08/18/24 08/18/24 08/18/24 09:00 History gabapentin 300 mg capsule 900 mg PO BEDTIME 08/18/24 08/18/24 08/17/24 History omeprazole 20 mg capsule,delayed 20 mg PO DAILY@0630 08/18/24 08/18/24 08/18/24 09:00 History release oxycodone 10 mg tablet 10 mg PO 6XD 08/18/24 08/18/24 08/18/24 09:00 History rivaroxaban 20 mg tablet (Xarelto) 20 mg PO DAILY@1700 08/18/24 08/18/24 08/18/24 09:00 History tamsulosin 0.4 mg capsule 0.4 mg PO BEDTIME 08/18/24 08/18/24 08/17/24 History Physical Exam Vital Signs: Vital Signs: Last Vital Signs Temp 97.9 F 08/19/24 05:12 Pulse 80 08/19/24 08:05 Resp 20 08/19/24 08:05 BP 133/87 08/19/24 08:05 Pulse Ox 97 08/19/24 08:05 O2 Del Method Room Air 08/19/24 08:05 O2 Flow Rate 2 08/18/24 13:10 Oxygen Flow Rate 2 08/18/24 11:16 BMI result Body Mass Index 34.8 Const: General: cooperative, comfortable, no acute distress, alert and awake Nutritional Appearance: obese Orientation/consciousness: patient oriented x3 Limitations: no limitations HEENT: Head: Yes normocephalic and Yes atraumatic Neck: Neck: Yes trachea midline, Yes supple and Yes no JVD Resp: Effort & Inspection: normal respiratory effort Auscultation: clear to auscultation bilaterally Cardio: Jugular venous distension: no JVD Rate: tachycardic Rhythm: abnormal rhythm irregularly irregular Heart sounds: S1 normal heart sound present, S2 normal heart sound present, no click, no gallops, no murmurs and no rubs GI: Auscultation: normal bowel sounds Skin: General skin exam: no rashes or lesions noted Neuro: General: patient oriented x3 and no focal motor deficits Extrem: General: Yes no clubbing, cyanosis or edema Objective Labs and Meds 08/19/24 05:04 08/19/24 05:04 Lab results: Laboratory Results - last 24 hr 08/18/24 08/18/24 08/18/24 11:34 12:42 14:34 WBC 6.2 RBC 4.22 L Hgb 12.9 L Hct 39.8 L MCV 94.3 MCH 30.6 MCHC 32.4 RDW 12.9 Plt Count 179 MPV 8.4 L Immature Gran % (Auto) 0.5 H Neut % (Auto) 66.5 Lymph % (Auto) 21.6 [place] % (Auto) 8.1 Eos % (Auto) 3.1 Baso % (Auto) 0.2 Lymph # (Auto) 1.3 [place] # (Auto) 0.5 Eos # (Auto) 0.2 Baso # (Auto) 0.0 Abs Immat Gran (auto) 0.03 Absolute Neuts (auto) 4.1 Absolute Nucleated RBC 0.000 Nucleated RBC % (auto) 0.0 PT 18.1 H INR 1.6 H APTT 39.4 H VBG pH 7.53 H VBG pCO2 29 VBG pO2 235 VBG HCO3 25 VBG O2 Saturation 100.0 VBG Base Excess 3.6 Sodium 142 Potassium 4.6 Chloride 108 Carbon Dioxide 30 H Anion Gap 9 L BUN 16 Creatinine 0.89 Estim Creat Clear Calc 108.9 Estimated GFR > 60 Random Glucose 112 Calcium 8.4 Magnesium 2.2 Total Bilirubin 0.4 AST 59 H ALT 90 H Alkaline Phosphatase 65 Troponin I High Sens < 2.7 Total Protein 6.2 L Albumin 3.7 Urine Color Dark Yellow Urine Appearance Clear Urine pH 5.5 Ur Specific [place] 1.020 Urine Protein Negative Urine Glucose (UA) Negative Urine Ketones Negative Urine Blood Negative Urine Nitrite Negative Ur Leukocyte Esterase Negative Influenza Type A (PCR) NEGATIVE Influenza Type B (PCR) NEGATIVE RSV RNA Qual (PCR) NEGATIVE SARS-CoV-2 RNA (RT-PCR) NEGATIVE 08/19/24 05:04 WBC 6.5 RBC 4.01 L Hgb 12.4 L Hct 37.2 L MCV 92.8 MCH 30.9 MCHC 33.3 RDW 13.0 Plt Count 171 MPV 8.8 L Immature Gran % (Auto) Neut % (Auto) Lymph % (Auto) [place] % (Auto) Eos % (Auto) Baso % (Auto) Lymph # (Auto) [place] # (Auto) Eos # (Auto) Baso # (Auto) Abs Immat Gran (auto) Absolute Neuts (auto) Absolute Nucleated RBC 0.000 Nucleated RBC % (auto) 0.0 PT INR APTT VBG pH VBG pCO2 VBG pO2 VBG HCO3 VBG O2 Saturation VBG Base Excess Sodium 142 Potassium 5.1 Chloride 110 H Carbon Dioxide 26 Anion Gap 11 L BUN 16 Creatinine 0.88 Estim Creat Clear Calc 110.1 Estimated GFR > 60 Random Glucose 95 Calcium 8.1 L Magnesium Total Bilirubin 0.5 AST 68 H ALT 100 H Alkaline Phosphatase 57 Troponin I High Sens Total Protein 5.9 L Albumin 3.4 L Urine Color Urine Appearance Urine pH Ur Specific [place] Urine Protein Urine Glucose (UA) Urine Ketones Urine Blood Urine Nitrite Ur Leukocyte Esterase Influenza Type A (PCR) Influenza Type B (PCR) RSV RNA Qual (PCR) SARS-CoV-2 RNA (RT-PCR) Imaging Radiologist's impression: Impressions Chest X-Ray 08/18/24 11:39 IMPRESSION: Unremarkable chest examination. Electronically signed by: Rigo Dela Cruz MD 08/18/2024 12:30 PM [facility] Assessment and Plan (1) Atrial fibrillation with RVR: Status: Acute Symptomatic atrial fibrillation with symptoms of lightheadedness as well as shortness of breath with exertion with improved symptoms while maintaining rhythm in fall. Patient was recurrent atrial fibrillation with borderline rate control. I think he will benefit from rhythm control in the short term while he is waiting for catheter ablation. Will have him follow-up with his own structural engineering project manager and scheduled for outpatient cardioversion and consider antiarrhythmic drug therapy with drugs like Multaq to maintain rhythm while he waits for his ablation in September. This can be done in near future as an outpatient. Continue full oral anticoagulation, currently on Xarelto which has been taking uninterrupted. He is encouraged to participate in weight loss program which has shown to reduce recurrence of atrial fibrillation and also consider treatment for sleep apnea which was recently diagnose for him. Blood pressure is otherwise well optimized. I think he can be discharged home later today. Advised to seek emergency care if he has recurrent symptoms. (2) Near syncope: Status: Acute Near-syncope improved with IV fluid bolus up to 2 L. Most likely due to dehydration. He has poor oral intake. Recommend to increase oral intake of fluids aggressively. He understands agrees. Orthostatic precautions were discussed. Better rate control as above. Follow up with his own structural engineering project manager in the next 7-10 days. Thank you for allowing me to partake in his care Procedures Date of Service Date of Service: 08/19/24
--- NOTE | 2024-08-19 10:41 | PC.NURSE ---
Pt seen by Cardiology and Dr. Solo. Pt to be d/c'd from ED. Awaiting d/c paperwork by Dr. Solo
--- NOTE | 2024-08-19 10:55 | P.DS_ITS ---
DS: Providers Provider Date of Service: 08/19/24 Date of admission: 08/18/24 16:17 Date of discharge: 08/19/24 Primary care physician: Jodi Quinones MD Consults: 08/18/24 16:19 Consult to Cardiology Routine Consulting Provider: [facility] Reason for consultation: Afib w/RVR Has provider been notified: Yes DS: Diagnosis Discharge Diagnosis (1) Atrial fibrillation with RVR: Status: Acute (2) Near syncope: Status: Acute DS: Summary Hospital Course Hospital Course: 73 year old male with a history of atrial fib on 120 mg of ER Diltiazem and Xarelto with an ablation scheduled for September, presenting to the emergency department today with lightheadedness and shortness of breath. Patient states that he woke up today feeling lightheaded and some what short of breath. Presented to ER with ventricular response rate in the 120s to 130s; given 2 L of normal saline and 5 mg of IV Cardizem with markedly improved rate control. \ Hospital course Patient was monitored overnight on telemetry where his rhythm remained well control. He was seen by Cardiology this a.m. and Cardizem was increased to 180 and he was instructed to follow up with his metal drilling machine operator for ablation in approximately 1 week. He is discharged in stable/improved condition Time Attestation Discharge Coordination Time (in mins): 35 Quality: Safe Use of Opioids Does Pt have an Active Cancer Diagnosis on the Problem List?: No Quality: Stroke Does the patient have a stroke diagnosis?: No Physical Exam Vital Signs: Vital Signs: Last Vital Signs Temp 97.9 F 08/19/24 05:12 Pulse 80 08/19/24 08:05 Resp 20 08/19/24 08:05 BP 133/87 08/19/24 08:05 Pulse Ox 97 08/19/24 08:05 O2 Del Method Room Air 08/19/24 08:05 O2 Flow Rate 2 08/18/24 13:10 Oxygen Flow Rate 2 08/18/24 11:16 BMI result Body Mass Index 34.8 Const: Other: Awake alert oriented x3 in no acute distress Resp: Other: Clear to auscultation bilaterally no rales rhonchi or wheezes Cardio: Other: No S4; positive S1-S2; no S3 murmurs rubs or gallops. Irregularly irregular GI: Other: Soft nontender nondistended normoactive bowel sounds Extrem: Other: Cranial nerves 2-12 grossly intact as tested. Motor is 5/5 all extremities. Sensation is intact. Cognition appropriate DS: Data Data Completed and Pending Labs on day of discharge: Laboratory Results - last 24 hr 08/18/24 08/18/24 08/18/24 11:34 12:42 14:34 WBC 6.2 RBC 4.22 L Hgb 12.9 L Hct 39.8 L MCV 94.3 MCH 30.6 MCHC 32.4 RDW 12.9 Plt Count 179 MPV 8.4 L Immature Gran % (Auto) 0.5 H Neut % (Auto) 66.5 Lymph % (Auto) 21.6 [place] % (Auto) 8.1 Eos % (Auto) 3.1 Baso % (Auto) 0.2 Lymph # (Auto) 1.3 [place] # (Auto) 0.5 Eos # (Auto) 0.2 Baso # (Auto) 0.0 Abs Immat Gran (auto) 0.03 Absolute Neuts (auto) 4.1 Absolute Nucleated RBC 0.000 Nucleated RBC % (auto) 0.0 PT 18.1 H INR 1.6 H APTT 39.4 H VBG pH 7.53 H VBG pCO2 29 VBG pO2 235 VBG HCO3 25 VBG O2 Saturation 100.0 VBG Base Excess 3.6 Sodium 142 Potassium 4.6 Chloride 108 Carbon Dioxide 30 H Anion Gap 9 L BUN 16 Creatinine 0.89 Estim Creat Clear Calc 108.9 Estimated GFR > 60 Random Glucose 112 Calcium 8.4 Magnesium 2.2 Total Bilirubin 0.4 AST 59 H ALT 90 H Alkaline Phosphatase 65 Troponin I High Sens < 2.7 Total Protein 6.2 L Albumin 3.7 Urine Color Dark Yellow Urine Appearance Clear Urine pH 5.5 Ur Specific [place] 1.020 Urine Protein Negative Urine Glucose (UA) Negative Urine Ketones Negative Urine Blood Negative Urine Nitrite Negative Ur Leukocyte Esterase Negative Influenza Type A (PCR) NEGATIVE Influenza Type B (PCR) NEGATIVE RSV RNA Qual (PCR) NEGATIVE SARS-CoV-2 RNA (RT-PCR) NEGATIVE 08/19/24 05:04 WBC 6.5 RBC 4.01 L Hgb 12.4 L Hct 37.2 L MCV 92.8 MCH 30.9 MCHC 33.3 RDW 13.0 Plt Count 171 MPV 8.8 L Immature Gran % (Auto) Neut % (Auto) Lymph % (Auto) [place] % (Auto) Eos % (Auto) Baso % (Auto) Lymph # (Auto) [place] # (Auto) Eos # (Auto) Baso # (Auto) Abs Immat Gran (auto) Absolute Neuts (auto) Absolute Nucleated RBC 0.000 Nucleated RBC % (auto) 0.0 PT INR APTT VBG pH VBG pCO2 VBG pO2 VBG HCO3 VBG O2 Saturation VBG Base Excess Sodium 142 Potassium 5.1 Chloride 110 H Carbon Dioxide 26 Anion Gap 11 L BUN 16 Creatinine 0.88 Estim Creat Clear Calc 110.1 Estimated GFR > 60 Random Glucose 95 Calcium 8.1 L Magnesium Total Bilirubin 0.5 AST 68 H ALT 100 H Alkaline Phosphatase 57 Troponin I High Sens Total Protein 5.9 L Albumin 3.4 L Urine Color Urine Appearance Urine pH Ur Specific [place] Urine Protein Urine Glucose (UA) Urine Ketones Urine Blood Urine Nitrite Ur Leukocyte Esterase Influenza Type A (PCR) Influenza Type B (PCR) RSV RNA Qual (PCR) SARS-CoV-2 RNA (RT-PCR) Discharge Plan Discharge Anticipated Discharge Date/Time: 08/19/24 10:51 Patient Disposition: Home, Self-Care Discharge Diagnosis: Atrial fibrillation with rapid ventricular response Referrals: Jodi Quinones MD [Primary Care Provider] - 1 Week Discharge Medications: New diltiazem HCl 180 mg capsule,extended release 24 hr 180 mg PO DAILY Qty: 30 3RF Continued atorvastatin 80 mg tablet 80 mg PO DAILY tamsulosin 0.4 mg capsule 0.4 mg PO BEDTIME docusate sodium 100 mg capsule 100 mg PO DAILY gabapentin 300 mg capsule 900 mg PO BEDTIME omeprazole 20 mg capsule,delayed release(DR/EC) 20 mg PO DAILY@0630 oxycodone 10 mg tablet 10 mg PO 6XD Xarelto 20 mg tablet 20 mg PO DAILY@1700 Discontinued diltiazem HCl 120 mg capsule,extended release 24hr 120 mg PO DAILY Discharge Orders: Discharge Order (Routine); Ordered 08/19/24 Ordered By: Alonso Solo Diet: Advance to usual diet Activity on Discharge: As tolerated Stand Alone Forms: Patient Portal Discharge page Print Language: Swazi Care Plan Goals: Resume all medications as taken before hospitalization Health Concerns: Your Cardizem has been increased to 180 mg daily. Continued taken this until seen by your metal drilling machine operator Plan of Treatment: Follow up with your metal drilling machine operator as scheduled Assessment: See discharge summary
[2024-08-19 11:22] VITALS: BP 117/93; PULSE 97; RESP 20; TEMP 36.3; O2SAT 95
== END 2024-08-19 11:21 | disposition home or self-care (01) ==
LOC: HO.ED 15:01 → HO.EDOVER 16:28
PROVIDERS: Physician Assistant Medical; Admitting Provider Hospitalist; Emergency Provider Emergency Medicine; PCP Family Medicine; Visit Provider Hospitalist
DX: I48.20 Chronic atrial fibrillation, unspecified (principal); R55 Syncope and collapse; K21.9 Gastro-esophageal reflux disease without esophagitis; R42 Dizziness and giddiness; R06.02 Shortness of breath; I10 Essential (primary) hypertension; Z79.01 Long term (current) use of anticoagulants; Z79.899 Other long term (current) drug therapy; Z03.818 Encounter for observation for suspected exposure to other biological agents ruled out
CPT/HCPCS: 0241U; 36415; 71045; 80053; 81003; 82803; 83735; 84484; 85025; 85027; 85610; 85730; 93005; 96361; 96374; 99222; 99285

== ENCOUNTER → 2024-08-18 11:19 | Outpatient (BNV) | payer MEDICARE, SELFPAY | PROVIDERS: Emergency Provider Emergency Medicine; PCP Family Medicine; Visit Provider Internal Medicine Cardiovascular Disease | DX: R94.31 Abnormal electrocardiogram [ECG] [EKG] (principal) | CPT/HCPCS: 93010 ==

== ENCOUNTER → 2024-08-18 11:20 | Outpatient (BNV) | payer MEDICARE, OTHER, SELFPAY | PROVIDERS: Emergency Provider Emergency Medicine; PCP Family Medicine; Visit Provider Radiology Diagnostic Radiology | DX: R42 Dizziness and giddiness (principal) | CPT/HCPCS: 71045 ==

== ENCOUNTER → 2024-08-18 16:17 | Outpatient (BNV) | payer MEDICARE, SELFPAY | PROVIDERS: Admitting Provider Hospitalist; Emergency Provider Emergency Medicine; PCP Family Medicine; Visit Provider Hospitalist | DX: I48.91 Unspecified atrial fibrillation (principal); I10 Essential (primary) hypertension; K21.9 Gastro-esophageal reflux disease without esophagitis | CPT/HCPCS: 99223 ==

== ENCOUNTER → 2024-08-18 16:17 | Outpatient (BNV) | payer MEDICARE, OTHER, SELFPAY | PROVIDERS: Admitting Provider Hospitalist; Emergency Provider Emergency Medicine; PCP Family Medicine; Visit Provider Internal Medicine Cardiovascular Disease | DX: I48.91 Unspecified atrial fibrillation (principal); R55 Syncope and collapse | CPT/HCPCS: 99222 ==